=== PATIENT | female | born 1980 | race Caucasian/White ===

== ENCOUNTER 2016-11-04 12:01 | Emergency (ER) | payer OTHER ==
[2016-11-04] MEDS ORDERED: DOXYCYC MONO100 M1 PO (12:12)
[2016-11-04 12:20] VITALS: BP 113/60
== END 2016-11-04 12:20 | disposition home or self-care (01) | DRG 607 ==
LOC: ED 12:01
DX: S10.96XA Insect bite of unspecified part of neck, initial encounter (principal); S00.462A Insect bite (nonvenomous) of left ear, initial encounter; W57.XXXA Bitten or stung by nonvenomous insect and other nonvenomous arthropods, initial encounter